=== PATIENT | male | born 2005 | race Caucasian/White ===

== ENCOUNTER 2024-12-13 12:55 | Emergency (ER) | payer BC, SELFPAY ==
--- OUTSIDE RECORDS SUMMARY | 2024-12-13 12:56 | XMS_ITS | Clinical Summary ---
Author Organization [facility] Address [address] [facility] [address], [place] [address] [place] [address] Care Team Providers Care Landman Name Role Phone Clay Agarwal MD Primary Care Provider Source Comments These records are disclosed for treatment purposes as permitted by state and federal privacy law. Any further disclosure may only be done as permitted by law or with the patient's written authorization.[facility] Allergies Active Allergy Reactions Criticality Noted Date Comments Cottonseed Oil Rash Low 10/06/2019 Itchy rash with testosterone cypionate (cottonseed oil). Medications testosterone enanthate (DELATESTRYL) 200 mg/mL injection 50 mg. 3 Active hydroquinone 6 % Emulsion Apply 1 Film topically 2 times a day. 30 g 5 3 Active Active Problems Problem Noted Date Diagnosed Date Gender dysphoria 11/16/2022 Keloid scar 11/16/2022 Social History Tobacco Use Types Packs/Day Years Used Date Smoking Tobacco: Never Assessed Comments Unknown Sex and Gender Information Value Date Recorded Sex Assigned at Not on file Legal Sex Female 3:37 AM PDT Gender Identity Not on file Sexual Orientation Not on file Plan of Treatment Health Maintenance Due Date Last Done Comments MMR vaccines (1 of 1 - Standard series) 2005 Well Visit 2007 DTaP / Tdap / Td vaccines (1 - Tdap) 2011 Varicella vaccines (1 of 2 - 13+ 2-dose series) 2017 HPV vaccines (1 - 3-dose series) 2019 Hepatitis B vaccines (1 of 3 - 19+ 3-dose series) 2023 COVID-19 Vaccine (3 - 2023-2 5 season) 2024 01/05/2021, 12/15/2020 Influenza Vaccine (#1) 2024 Hepatitis A vaccines Aged Out No long er eligible based on patient's age to complete this topic Hib vaccines Aged Out No longer eligi ble based on patient's age to complete this topic Meningococcal (ACYW) vaccine Aged Out No longer eligible based on patient's age to complete this topic Pneumococcal (PCV) vaccines Aged Out No longer eligible based on patient's age to complete this topic Polio (IPV/OPV) vaccines Aged Out No longer eligible based on patient's age to complete this topic RSV <20 Months Aged Out No longer celestino gible based on patient's age to complete this topic Rotavirus vaccines Aged Out No longer eligible based on patient's age to complete this topic Care Teams Landman Relationship Specialty Start Date End Date Clay Agarwal MD [facility] [address] [place] [address] PCP - General Unknown 10/31/22
--- OUTSIDE RECORDS SUMMARY | 2024-12-13 12:57 | XMS_ITS | Encounter Summary ---
Author Organization [facility], [facility], [facility], and Affiliates Address [address] [place] [address] Care Team Providers Care Bagger And Stock Handler Helper Name Role Phone Clay Agarwal MD Primary Care Provider Joan Kitchen NP Unavailable [phone] Francesca Nagel MD Unavailable [phone] Encounter Details Date Type Department Care Team (Late Contact Info) Description 03/23/2021 Telephone [facility] Pediatric Endocrine [address] [place] [address] [address] [place] [address] Gabriela Roberts RN Social History Tobacco Use Types Packs/Day Years Used Date Smoking Tobacco: Never Smokeless Tobacco: Never Comments Unknown Sex and Gender Information Value Date Recorded Sex Assigned at Female 04/25/2022 3:34 PM PDT Legal Sex Female 1:06 PM PDT Gender Identity Male 04/25/2022 3:34 PM PDT Sexual Orientation Bisexual 04/25/2022 3: 55 PM PDT documented as of this encounter Plan of Treatment Upcoming Encounters Date Type Department Care Team (Late Contact Info) Description 02/10/2025 3:00 PM PDT Office Visit [facility] Transgender Care Clinic [address] [place] [phone] Francesca Nagel MD [address] [place] [address] St, [address] [place] [address] documented as of this encounter Visit Diagnoses Not on filedocumented in this encounter Care Teams Bagger And Stock Handler Helper Relationship Specialty Start Date End Date Clay Agarwal MD [address] [place] [address] PCP - General Pediatrics 07/21/19 Joan Kitchen NP [address] [place] [address], 6th [place] [address] Nurse Practitioner Pediatric Endocrinology 04/25/22 Francesca Nagel MD [facility] [facility], [address] [place] [address] Family Medicine 01/21/23 documented as of this encounter
--- OUTSIDE RECORDS SUMMARY | 2024-12-13 12:57 | XMS_ITS | Patient Health Record ---
Author Organization [facility] Address [address] [place] [address] Care Team Providers Care Fixing Carpenter Name Role Phone Clay Agarwal MD Primary Care Provider Unavail able Allergies Allergen (clinical drug ingredient) Drug/Non Drug Allergy documented on EMR Reaction Allergy Type Onset Date Status Cottonseed Oil rash Drug Allergy Ac tive Reason For Referral No Information Medications Medication SIG (Take, Route, Frequency, Duration) Notes Start Date End Date Status Testosterone Active Social History Tobacco Use: Social History Observation Description Date Details (start date - stop date) Never Smoker NA - NA Tobacco Use/Smoking Question Answer Notes You are a nonsmoker Plan Of Treatment No Information Insurance Providers Payer Name Payer Address Payer Phone Subscriber Number Group Number Insured Name Patient Relationship to Insured Coverage Start Date Coverage End Date [employer] PPO or NAP [address] [place] [address] [id number] GENESIS KAROLYN Parent Medical (General) History Medical History History ICD Code Pfizer x3
--- OUTSIDE RECORDS SUMMARY | 2024-12-13 12:57 | XMS_ITS | Clinical Summary ---
Author Organization [facility], [facility], [facility], and Affiliates Address [address] [place] [address] Care Team Providers Care Molder Closed Molds Name Role Phone Clay Agarwal MD Primary Care Provider Joan Kitchen NP Unavailable [phone] Francesca Nagel MD Unavailable [phone] Allergies Active Allergy Reactions Criticality Noted Date Comments Cottonseed Oil Rash Low 10/06/2019 Itchy rash with testosterone cypionate (cottonseed oil). Medications * This document contains information received from the source organization and may not represent a complete record from that organization. empty container (SHARPS CONTAINER) MISCIndications :Gender dysphoria Dispense 1 sharps container prn 1 each 3 2 Active alcohol swabs (ALCOHOL PADS) PADSMEDIndicati ons:Gender dysphoria Use 1 pad daily to skin at injection site prior to injection 100 each 3 2 Active syringe with needle (BD TUBERCULIN SYRINGE) 1 mL 25 gauge x 5/8 syringeIndicati ons:Gender dysphoria 1 each by Misc.(Non-Drug; Combo Route) route every 7 (seven) days 12 each 1 3 Active testosterone enanthate (DELATESTRYL) 200 mg/mL injectionIndica tions:Gender dysphoria INJECT 0.25 MILLILITERS UNDER THE SKIN EVERY WEEK 5 mL 3 3 Active LORazepam (ATIVAN) 0.5 mg tabletIndicatio ns:Anxiety due to invasive procedure Take 1 tablet (0.5 mg total) by mouth every 30 (thirty) minutes as needed for Anxiety (prior to imaging study or procedure) for up to 2 doses 2 tablet 5 Active Active Problems Problem Noted Date Diagnosed Date 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 Ayaz started GAHT with testosterone 09/2019. 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 He is adherent to testosterone 50 mg/week without AE or s/sx hypogonadism. Labs 06/2022 resulted in a serum total testosterone within range for male and age and no evidence of erythrocytosis. Followed by Dr. Driver for dyslipidemia and will repeat fasting labs next month for her. I recommend that Ayaz continue the current dose of testosterone, transition to adult Gender Health, and there are no contraindications for hysterectomy. Discharged from [facility]. Assessment & Plan (04/25/2022 4:01 PM PDT): Ayaz Armenta is a male designated female, he/him, who was first evaluated at [facility] for gender dysphoria 07/21/2019. Ayaz started GAHT with testosterone 09/2019. 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 He is adherent to testosterone 50 mg/week without AE or s/sx hypogonadism. Labs 05/2021 resulted in normal serum total T for age and no evidence of erythrocytosis. I recommend repeat labs as ordered now to evaluate the dose and screen for AE and recommend that patient continue the current dose pending lab results. RTC q 4 months by video. Assessment & Plan (08/16/2021 10:33 AM PST): Affirmed on T therapy. Labs in 05/2021 demonstrated appropriate T level drawn 4 days post-injection and normal hematocrit level. Noted to have persistent dyslipidemia with onset following initiation of T therapy despite increase in physical activity and healthy diet. - Continue SQ T 50 mg/wk - No indication for repeat labs at this time Assessment & Plan (05/23/2021 6:53 PM PDT): Affirmed on T therapy. Recent labs demonstrate appropriate T level drawn 4 days post-injection. Persistent dyslipidemia with onset following initiation of T therapy despite increase in physical activity and healthy diet. Recent hematocrit within normal limits. - Continue SQ T 50 mg/wk - Refer to [facility] for further evaluation of dyslipidemia - Follow-up in 3-4 months Resolved Problems Problem Noted Date Diagnosed Date Resolved Date Counseling for transition fr pediatric to adult care provider 08/14/2021 03/06/2023 Overview (09/04/2022): [facility] ([facility]) Health Care Transition Readiness 1. [x] Have you shared the HCT policy (.CAGCHCTPolicy) with the patient? 2. [x] Is the patient on a stable hormone regimen? 3. [] Has patient signed their [facility] consent forms (if >=18 years)? 4. [] Patient is not planning on other gender-affirming treatments in the next year. 5. [x] Has patient identified an adult provider to whom they would like to transfer their care? 6. [x] Have you provided patient with a transfer summary? Assessment & Plan (09/04/2022 1:30 PM PST): Patient states understanding of the health care transition policy. Gender-affirming healthcare activities were discussed, and patient demonstrates competency in: scheduling appointments, filling prescriptions, completing lab work, utilizing insurance, communicating gender history and communicating future medical/surgical gender-affirming goals. Patient is ready for transition to adult gender care services: Yes. [facility] Gender Health. Eosinophilia 05/23/2021 09/04/2022 Assessment & Plan (05/23/2021 6:58 PM PDT): Incidental finding on CBC w/ differential obtained for T monitoring. Possibly due to recent allergic reaction of the patient's eye. Will defer to PCP for further evaluation and follow-up. Dyslipidemia 05/23/2021 03/06/2023 Assessment & Plan (08/16/2021 10:34 AM PST): Fasting labs 05/2021 revealed elevated triglycerides and low HDL with normal LDL. Dyslipidemia onset occurred after initiation of testosterone therapy and has occurred despite increase in physical activity, healthy diet, and no significant weight change with a healthy BMI. Thre is a strong family history of dyslipidemia and heart disease with a myocardial infarction at a young age (age 35 years) in the patient's grandfather. - continue healthy diet and exercise - previously referred to [facility] for further evaluation; scheduled to be seen in 09/2021 Assessment & Plan (05/23/2021 6:57 PM PDT): Fasting labs revealed elevated triglycerides and low HDL with normal LDL. Dyslipidemia onset occurred after initiation of testosterone therapy and has occurred despite recent increase in physical activity, healthy diet, and no significant weight change with a healthy BMI. Thre is a strong family history of dyslipidemia and heart disease with a myocardial infarction at a young age (age 35 years) in the patient's grandfather. - continue healthy diet and exercise - refer to [facility] Clinic for further evaluation Endocrine disorder 12/08/2019 2 Encounters Date Type Department Care Team Description 11/18/2024 1:15 PM PDT Office Visit [facility] Transgender Care Clinic [address] [place] [phone] Francesca Nagel MD Gender dysphoria (Primary Dx) 10/08/2024 Telephone [facility] Trans[facility] Care Clinic [address] [place] [phone] Francesca Nagel MD Medication Prior Authorization (Testopel 75 mg) from Last 3 Months Immunizations Name Administration Dates Next Due DTaP 10/05/2008, 6,2004,10/05,2004 Gamma Globulin 11/22/2015 HPV 9 GARDASIL 05/23/2016,01/23/2016,11/22/2015 Hepatitis A 05/29/2006,11/29/2005 Hepatitis B, Ped/Adol 2004,2004,3 Hib, Unspecified 06/08/2005,2004, 4 Hpv, Unspecified 01/23/2016,11/22/2015 IPV 10/05/2008, 5,2004,07/31 Influenza 06/02/2024,07/20/2022,06/16/2019 Influenza Nasal 06/24/2014, 3,07/21/2012,06/18,06/26/2011 Influenza Quad MDCK, Pfree 07/28/2021,06/10/2020 ,07/17/2017 Influenza, Split Tri PF 07/02/2015 MMR 10/05/2008,06/08/2005 Meningococcal (Mcv4), Unspecified 02/22/2021, Meningococcal Group B (Bexsero) 04/30/2022,03/01 PPD Test 11/22/2015,03/14/2010 Pfizer Sars-Cov-2 Vaccine (Purple Top) ,01/05/2021,12/15/2020 Pneumococcal Conjugate (Prevnar 7) 06/08,2004,2004,07/31 Tdap 11/22/2015 Varicella 10/05/2008,06/08/2005 Family History Medical History Relation Name Comments Depression Brother High cholesterol Maternal Grandmother High blood pressure Mother Heart disease Paternal Grandfather heart attack at age 35 years High cholesterol Paternal Grandfather High cholesterol Paternal Grandmother Malig hypertherm Neg Hx Relation Name Status Comments Brother Alive Father Alive Maternal Grandmother Mother Alive Paternal Grandfather Paternal Grandmother Social History Tobacco Use Types Packs/Day Years Used Date Smoking Tobacco: Never Smokeless Tobacco: Never Tobacco Cessation:Counseling Given: Not Answered Alcohol Use Standard Drinks/Week Comments Yes 0 (1 standard drink = 0.6 oz pur e alcohol) Comments Unknown Sex and Gender Information Value Date Recorded Sex Assigned at Female 04/25/2022 3:34 PM PDT Legal Sex Female 1:06 PM PDT Gender Identity Male 04/25/2022 3:34 PM PDT Sexual Orientation Bisexual 04/25/2022 3: 55 PM PDT Last Filed Vital Signs Vital Sign Reading Time Taken Comments Blood Pressure 135/75 11/18/2024 1:17 PM PDT Pulse 69 11/18/2024 1:17 PM PDT Temperature 36.3 C (97.4 F) 11/18/2024 1:17 PM PDT Respiratory Rate 18 11/21/2022 1:30 PM PDT Oxygen Saturation 98% 11/18/2024 1:17 PM PDT Inhaled Oxygen Concentration - - Weight 61.2 kg (135 lb) 07/29/2024 2:51 PM PST Height 162.6 cm (5' 4) 07/29/2024 2:51 PM PST Body Mass Index 23.17 07/29/2024 2:51 PM PST Plan of Treatment Upcoming Encounters Date Type Department Care Team ([facility] st Contact Info) Description 02/10/2025 3:00 PM PDT Office Visit [facility] Transgender Care Clinic [address] [facility] [address] [place] [address] Francesca Nagel MD [address] [facility], [address] [place] [address] Health Maintenance Due Date Last Done Comments Hepatitis B Routine Screening 2004 Chlamydia and Gonorrhea Screening 2020 HIV Routine Screening 2022 Hepatitis C Routine Screening 2022 Covid-19 Vaccine ( season) 2024 07/20/2022, 08/24/2021, 01/05/2021, Additional history exists Tobacco Screening 11/18/2025 11/18/2024 Td Immunization 11/21/2025 11/22/2015 Zoster Vaccines (1 of 2) 2054 Hepatitis B Vaccines Completed 2004, 2004, 2004 Pneumococcal Vaccine (0-49 years) Aged Out 06/08/2005, 2004, 2004, Additional history exists No longer eligible based on patient's age to complete this topic Tdap Immunization Completed 11/22/2015 HPV Vaccines Completed 05/23/2016, 01/01, 01/23/2016, Additional history exists Meningitis B Vaccines Completed 04/30/2022, 022 Influenza Vaccines Completed 06/02/2024, 1 09/19/2021, 07/28/2021, Additional history exists Insurance [employer] Care Teams Molder Closed Molds Relationship Specialty Start Date End Date Clay Agarwal MD [address] [place] [address] [address] [place] [address] PCP - General Pediatrics 07/21/19 Joan Kitchen NP [address] [place] [address], 6th [place] [phone] Nurse Practitioner Pediatric Endocrinology 04/25/22 Francesca Nagel MD [address] [place] [address], [address] [place] [address] Family Medicine 01/21/23
--- OUTSIDE RECORDS SUMMARY | 2024-12-13 12:57 | XMS_ITS | Encounter Summary ---
Author Organization [facility], [facility], [facility], and Affiliates Address [address] [place] [address] Care Team Providers Care Coil Winder Hand Name Role Phone Clay Agarwal MD Primary Care Provider Joan Kitchen NP Unavailable [phone] Francesca Naegl MD Unavailable [phone] Reason for Visit * Reason Onset Date Comments Medication Prior Authorization 11/09/2021 t estosterone enanthate Encounter Details Date Type Department Care Team (Late Contact Info) Description 11/09/2021 Telephone [facility] Pediatric Endocrine [facility] [place] [phone] Radha Miller Medication Prior Authorization (testosterone enanthate) Social History Tobacco Use Types Packs/Day Years [...] Upcoming Encounters Date Type Department Care Team ([facility] Contact Info) Description 02/10/2025 3:00 PM PDT Office Visit [facility] Transgender Care Clinic [address] [place] [phone] Francesca Nagel MD [address] [place] [phone] documented as of this encounter Visit Diagnoses Not on filedocumented in this encounter Care Teams Coil Winder Hand Relationship Specialty Start Date End Date Clay Agarwal MD [address] [place] [address] [address] [place] [address] PCP - General Pediatrics 07/21/19 Joan Kitchen NP [address] [place] [address], [address]th [place] [phone] Nurse Practitioner Pediatric Endocrinology 04/25/22 Francesca Nagel MD [address] [place] [phone] Family Medicine 01/21/23 documented as of this encounter
--- OUTSIDE RECORDS SUMMARY | 2024-12-13 12:57 | XMS_ITS | Encounter Summary ---
Author Organization [facility], [facility], [facility], and Affiliates Address [address] [place] [address] Care Team Providers Care Photoengraving Retoucher Name Role Phone Clay Agarwal MD Primary Care Provider Joan Kitchen NP Unavailable [phone] Francesca Nagel MD Unavailable [phone] Reason for Visit * Reason Comments Procedure Testopel Encounter Details Date Type Department Care Team ([facility] Contact Info) Description 11/18/2024 1:15 PM PDT Office Visit [facility] [address] [place] [phone] Francesca Nagel MD [address] [place] [address], [address] [place] [address] Gender dysphoria (Primary Dx) Social History Tobacco Use Types Packs/Day Years Used Date Smoking Tobacco: Never Smokeless Tobacco: Never Alcohol Use Standard Drinks/Week Comments Yes 0 (1 standard drink = 0.6 oz pur e alcohol) Comments Unknown Sex and Gender Information Value Date Recorded Sex Assigned at Female 04/25/2022 3:34 PM PDT Legal Sex Female 1:06 PM PDT Gender Identity Male 04/25/2022 3:34 PM PDT Sexual Orientation Bisexual 04/25/2022 3: 55 PM PDT documented as of this encounter Last Filed Vital Signs Vital Sign Reading Time Taken Comments Blood Pressure 135/75 11/18/2024 1:17 PM PDT Pulse 69 11/18/2024 1:17 PM PDT Temperature 36.3 C (97.4 F) 11/18/2024 1:17 PM PDT Respiratory Rate - - Oxygen Saturation 98% 11/18/2024 1:17 PM PDT Inhaled Oxygen Concentration - - Weight - - Height - - Body Mass Index - - documented in this encounter Patient Instructions * Patient Instructions* Francesca Nagel MD - 11/18/2024 1:15 PM PDT Have your labs done at any [facility] lab location in 2 weeks. You can find a [facility] lab location and schedule your lab test appointment at this website: [email or web address] Tests can be done by appointment or as a walk-in If you are not having your blood test performed in the [facility], It is advised that you bring a paper or electronic copy of the lab order slips with you to your lab appointment in the event there is confusion at the lab. See me in 3 months. You must schedule the appointment today as things fill quickly and there can vaibhav several month wait for an appointment. If you do not schedule your visit in advance and then as aresult are unable to see me when due, I may not be able to refill your medication for you. Scheduling is now done through the [employer] portal. You may also call [phone] however please note that requests for scheduling via phone may experience significant delays. PATIENT POLICIES AND EXPECTATIONS [facility] GENDER AFFIRMING HEALTH PROGRAM Reading and understanding these policies and expectations are a requirement for treatment in this clinic. More information about our program is available at [email or web address] TIMING OF LABS AND VISITS In order to properly monitor your health and treatment, your provider will periodically order lab tests to be done, and request follow up visits. The timing and details for these lab tests and visitswill be listed in your after visit summary, available in [employer], or printed for you on paper at your request. You should review all of these materials after each visit to be sure you are clear on next steps, and when labs, visits, or other requirements are due. LAB TESTS Lab tests must be done while taking the full, prescribed dose, so that your provider can see how your body is reacting to the medication. You should be on the full dose for 6 weeks before your lab tests are done. NOTE: In general hormone lab tests require up to 2 weeks for results to be available. All hormone testing must be completed a minimum of 2 weeks before your visit to insure that your results will be available. Our office will send you a reminder message by [employer] (or by phone, if you are not signed up for [employer]) when lab tests are due. If labs are not done on time and following instructions given to you by your provider, your appointment will be rescheduled by our staff and you will receive a written notice of late labs. OFFICE VISITS AND REFILL REQUIREMENTS Office visits (in-person or telemedicine) are needed at the required intervals in order to properlyand safely monitor your care. Please note that the schedule often fills well in advance, so you should contact our office or self-schedule via [employer] at least 3 months in advance to schedule follow up visits, or your visit may not be able to occur on time. If you do not have follow up visits done on time, or do not take other required steps as listed in your after visit summary, you will receivea written notice. After a second written notice, you will no longer be able to receive hormone prescriptions from this practice. If you request a refill but are overdue for labs, or if you are due for an upcoming visit that is not scheduled, your refill will not be approved until your labs are completed on the full, prescribeddose and you have an appointment scheduled. If the delay in scheduling results in your appointment being scheduled past the due date, your provider may deny your refill. IN PERSON VS TELEMEDICINE VISITS Telemedicine is a convenience we offer for some patients under some circumstances. In some cases anin-person visit will be required. If you decline an in-person visit when one is required, then yourprovider will be unable to diagnose or treat your condition, make specialty referrals, or provide other relevant care. Scheduling telemedicine visits requires that you have an active [facility] [employer] account, that you regularly check for messages and notices, and that you have set up [employer] to send you notifications viae-mail or on your device when messages and notices received. If you do not have an active [employer] account, or if you are sent messages via [employer] that go unread, you will no longer be able to schedule telemedicine visits, and will be required to schedule only in-person visits. Telemedicine visits have specific requirements provided below. If you are unable to meet these requirements, you will asked to schedule only in-person visits. 1) You must be a permanent resident of, or located in, the [facility] [place] (or other states where your provider might hold a license) at the time of the visit. 2) Your audio and video must have a good, stable connection. If your connection fails or becomes unstable, the visit will need to be rescheduled. 3) You should be seated and remain in one location during the visit. Once logged in, device should not be moved from its location, to avoid causing problems with the connection. 4) If in a vehicle, the car must be stopped for the entire visit, and the policies in (3) above apply. TAKING PRESCRIBED DOSE You should not make any changes to the dose, frequency, or the way that you take the medications, unless you first discuss with your provider and agree on a change. Making changes to your dosing, frequency, or the way in which you take the medication can cause harm and makes it difficult for your provider to monitor your health. To avoid confusion and possible errors in your dosing or overdosing,only one prescriber should be managing your hormones at a time. If you make changes to your dose, frequency, or the way you take your medication, or if you see another provider who prescribes, refills, or adjusts your hormone doses for you, you will receive a written notice. After a second written notice, you will no longer be able to receive hormone prescriptions from this practice. TREATMENT DECISIONS ARE MADE BY THE PROVIDER Providers work to listen to patients??? needs, goals, and concerns, and develop an individual treatment plan that includes medications, doses, frequency, as well as lab test and follow-up visit timing. Ultimately, the prescribing provider will make the final decision regarding these aspects of careand prescribing. Providers follow evidence-based guidelines and established best practices, and also their own clinical judgment to develop your treatment plan. Treatment may differ from patient to patient based on a number of clinical factors. MAKING ALTERNATIVE ARRANGEMENTS If something comes up that will prevent you from being able to have labs or visits on time, taking your medication as prescribed, or following any other instructions given to you by your provider or our staff, you must contact your provider immediately to discuss alternative arrangements. Regardless of the circumstances, if you provider feels they are unable to safely monitor your treatment due to missed labs or visits, or other factors, then you will no longer be able to receive hormone prescriptions from this clinic. AFTER-VISIT SUMMARY HAS IMPORTANT INFORMATION AND INSTRUCTIONS Be sure to review the After Visit Summary (AVS) for your recent visit. This can be done by reviewing the printed paperwork given to you at the end of the visit, or through the [employer] portal. The AVSwill contain all of your instructions for the timing of your next lab, visit, medication doses or changes, and other important information and instructions. You are responsible for following all instructions in the AVS, as a condition for continued treatment. If you wish to have a printed copy of your AVS mailed to you after a telemedicine visit, notify your provider or the staff. To view your After-Visit Summary in [employer]: 1) Log in to [employer] 2) Go to the Visits tab 3) Under the Visits tab, choose Appointments and Past Visits Select the After Visit Summary under the specific visit CLARIFICATIONS AND TREATMENTS WE DO NOT OFFER AT THIS CLINIC The below treatments and methods are not evidence based nor aligned with guidelines, and not offered at the [facility] Gender Affirming Health Program 1) Dosing of hormones/blood hormone levels higher than described in, or not aligned with appropriate published guidelines, including WPATH SOC8 and Endocrine Society Guidelines 2) Rectally administered hormones 3) Cycled dose hormones or intermittent dosing 4) Bicalutamide 5) Conjugated equine estrogens (???Premarin?? ) 6) Use of serum estrone or estriol levels to guide therapy 7) DHT/dihydrotestosterone 8) Cyproterone 9) Prescribe the same hormone simultaneously by more than one route There is no evidence to support the application of hormones directly to the genitals. Patients seeking to apply topical hormone preparations to genital area will have this dose included in overall dose, and taken into consideration when interpreting hormone levels and adjusting dose We do not use the term ???microdosing?? . Instead, we use a patient-goal driven approach to dosing that is guided by hormone levels and response to treatment on an individual basis. A ???low dose?? for one patient may be a ???high dose?? for another patient. documented in this encounter Progress Notes * Francesca Nagel MD - 11/18/2024 1:15 PM PDT Ayaz Armenat is an 19 y.o. person here for: Testopel QUEST Subjective Transgender man here for next testopel insertion. 4 months past since last insertion. In last 1-2 weeks has had some low energy and irritability. O/w no side effects and felt good with last cycle, which was first. Goal is to continue as present, male range T. Assessment and Plan ) Transgender man now for 2nd testopel. T level 912 peak and 412 trough. We will repeat 7 pellets today with plan for 3 month follow up. Check peak. I have diagnosed this patient with Gender Dysphoria (F64.0). Untreated gender dysphoria is associated with significant mental health impacts including high rates of suicidality. Gender affirming hormone therapy has been identified in the [employer] for Transgender Health Standards of Care as medically necessary in the treatment of Gender Dysphoria, F64.0. Gender affirming hormone therapy has been found in numerous studies to reduce measures of anxiety and depression and improve quality of life. Pt already on HRT, discussed regional intermodal truck driver considerations, risks, alternatives, and unknowns. Pt has appropriate capacity and insight to provide informed consent. Appropriate to continue HRT. Procedure Testopel insertion. After discussion of the risks, benefits, alternatives, and procedure specifics, as well as specificrisks of infection, bleeding, pain at site, as well as unpredictable T levels as we spend possibly several months finding the right dose for the patient, the patient signed the consent form. We then had a time out to confirm patient and location. L gluteal area prepped and draped in usual sterile fashion. The skin was marked in the upper outer quadrant of the L gluteal area, followed by prep and drape in usual sterile fashion. I then aanesth the skin and subcutaneous areas with lidocaine plain 1%, tracking through the tissues and then leaving a wheal. After a joanna on the skin with an 11 blade, the Testopel catheter was inserted, the innerneedle was removed and the trocar was placed, while 7 testopel pellets were placed using the fan technique. The trocar was removed, the area closed with steri-strips and an occlusive dressing. Procedure well tolerated without complications, EBL <1 cc. documented in this encounter Plan of Treatment Upcoming Encounters Date Type Department Care Team (Late st Contact Info) Description 02/10/2025 3:00 PM PDT Office Visit [facility] [address] [place] [phone] Francesca Nagel MD [address] [place] [address] [address] [place], [place] [phone] Scheduled Orders Name Type Priority Associated Diagnoses Orde r Schedule Testosterone, Free & Total, and SHBG Lab Routine Gender dysphoria 1 Occurrences starting 11/18/2024 until 11/18/2025 Hematocrit Lab Routine Gender dysphoria 1 Occurrences starting 11/18/2024 until 11/18/2025 Hemoglobin Lab Routine Gender dysphoria 1 Occurrences starting 11/18/2024 until 11/18/2025 documented as of this encounter Visit Diagnoses Diagnosis Gender dysphoria- Primary Gender identity disorder in children documented in this encounter Care Teams Photoengraving Retoucher Relationship Specialty Start Date End Date Clay Agarwal MD [facility] [address] [place] [address] PCP - General Pediatrics 07/21/19 Joan Kitchen NP [facility] [facility] [address], [address] [place] [phone] Nurse Practitioner Pediatric Endocrinology 04/25/22 Francesca Nagel MD [address] [place] [address], [address] [place], [place] [phone] Family Medicine 01/21/23 documented as of this encounter
--- OUTSIDE RECORDS SUMMARY | 2024-12-13 12:57 | XMS_ITS | Encounter Summary ---
Author Organization [facility], [facility], [facility], and Affiliates Address [address] [facility] [place] [address] Care Team Providers Care Pulmonology Technician Name Role Phone Provider, Not Confirmed Primary Care Provider Un available Clay Agarwal MD Primary Care Provider Joan Kitchen NP Unavailable [phone] Francesca Nagel MD Unavailable [phone] Encounter Details Date Type Department Care Team (Late st Contact Info) Description 02/19/2019 Care Coordination [facility] [address] [place] [phone] Provider, Not Confirmed Social History Tobacco Use Types Packs/Day Years [...] Description 02/10/2025 3:00 PM PDT Office Visit [facility] Clinic [address] [place] [phone] Francesca Nagel MD [address] [place] [address] St, [address] [place] [address] documented as of this encounter Visit Diagnoses Not on filedocumented in this encounter Care Teams Pulmonology Technician Relationship Specialty Start Date End Date Provider, Not Confirmed PCP - General 02/19/19 07/20/19 Clay Agarwal MD [address] [place] [address] PCP - General Pediatrics 07/21/19 Joan Kitchen NP [address] [place] [address], [address] [place] [address] Nurse Practitioner Pediatric Endocrinology 04/25/22 Francesca Nagel MD [address] [facility], [address] [place] [address] Family Medicine 01/21/23 documented as of this encounter
--- OUTSIDE RECORDS SUMMARY | 2024-12-13 12:57 | XMS_ITS | Encounter Summary ---
Author Organization [facility], [facility], [facility], and Affiliates Address [address] [place] [address] Care Team Providers Care Account Support Analyst Name Role Phone Clay Agarwal MD Primary Care Provider Jaon Kitchen NP Unavailable [phone] Francesca Nagel MD Unavailable [phone] Reason for Visit * Reason Onset Date Comments Medication Prior Authorization 04/05/2020 t estosterone enanthate Encounter Details Date Type Department Care Team (Late Contact Info) Description 04/05/2020 Telephone [facility] Pediatric Endocrine [address] [place] [address] 4 [place] [address] Radha Miller Medication Prior Authorization (testosterone enanthate ) Social History Tobacco Use Types Packs/Day Years [...] Description 02/10/2025 3:00 PM PDT Office Visit [facility] Trans[facility] Clinic [address] [place] [phone] Francesca Nagel MD [facility] [phone] documented as of this encounter Visit Diagnoses Not on filedocumented in this encounter Care Teams Account Support Analyst Relationship Specialty Start Date End Date Clay Agarwal MD [address] [place] [address] Rd [address] [place] [address] PCP - General Pediatrics 07/21/19 Joan Kitchen NP [address] [place] [address], 6th [place] [phone] Nurse Practitioner Pediatric Endocrinology 04/25/22 Francesca Nagel MD [address] [place] [address], [address] [place] [address] Family Medicine 01/21/23 documented as of this encounter
--- OUTSIDE RECORDS SUMMARY | 2024-12-13 12:58 | XMS_ITS | Referral Summary ---
Author Organization [facility], [facility], [facility], and Affiliates Address [address] [place] [address] Care Team Providers Care General Superintendent Name Role Phone Clay Agarwal MD Primary Care Provider Joan Kitchen NP Unavailable [phone] Francesca Nagel MD Unavailable [phone] Encounters Date Type Department Care Team Description 11/18/2024 1:15 PM PDT Office Visit [facility] Transgender [facility] Clinic [address] [place] [phone] Francesca Nagel MD Gender dysphoria (Primary Dx) 10/08/2024 Telephone [facility] [address] [place] [phone] Francesca Nagel MD Medication Prior Authorization (Testopel 75 mg) from Last 3 Months Allergies Active Allergy Reactions Criticality Noted Date Comments Cottonseed Oil Rash Low 10/06/2019 Itchy rash with testosterone cypionate (cottonseed oil). Medications * This document contains information received from the source organization and may not represent a complete record from that organization. empty container (SHARPS CONTAINER) MISCIndications :Gender dysphoria Dispense 1 sharps container prn 1 each 3 08/24/202 2 Active alcohol swabs (ALCOHOL PADS) PADSMEDIndicati ons:Gender dysphoria Use 1 pad daily to skin at injection site prior to injection 100 each 3 2 Active syringe with needle (BD TUBERCULIN SYRINGE) 1 mL 25 gauge x 5/8 syringeIndicati ons:Gender dysphoria 1 each by [facility].(Non-Drug; Combo Route) route every 7 (seven) days [...] female, he/him, who was first evaluated at [facility] for gender dysphoria 07/21/2019. Ayaz started GAHT [...] are no contraindications for hysterectomy. Discharged from [facility]. Assessment & Plan (04/25/2022 4:01 PM PDT): Ayaz Armenta is a male designated female, he/him, who was first evaluated at [facility] for gender dysphoria 07/21/2019. Ayaz started GAHT [...] adult care provider 08/14/2021 03/06/2023 Overview (09/04/2022): [facility]oles[facility] ([facility]) Health Care Transition Readiness 1. [x] Have you shared the HCT policy (.CAGCHCTPolicy) with the patient? 2. [x] Is the patient on a stable hormone regimen? 3. [] Has patient signed their [facility] consent forms (if >=18 years)? 4. [...] transition to adult gender care services: Yes. [facility] Gender Health. Eosinophilia 05/23/2021 09/04/2022 [...] for further evaluation Endocrine disorder 12/08/2019 2 Immunizations Name Administration Dates Next Due DTaP 10/05/2008, 6,2004,10/05,2004 Gamma Globulin 11/22/2015 HPV 9 GARDASIL 05/23/2016,01/23/2016,11/22/2015 Hepatitis A 05/29/2006,11/29/2005 Hepatitis B, Ped/Adol 2004,2004,05/05 Hib, Unspecified 06/08/2005,2004, 4 Hpv, Unspecified 01/23/2016,11/22/2015 IPV 10/05/2008, 5,2004,07/31 Influenza 06/02/2024,07/20/2022,06/16/2019 Influenza Nasal 06/24/2014, 3,07/21/2012,06/18,06/26/2011 Influenza Quad MDCK, Pfree 07/28/2021,06/10/2020 ,07/17/2017 Influenza, Split Tri PF 07/02/2015 MMR 10/05/2008,06/08/2005 Meningococcal (Mcv4), Unspecified 02/22/2021, Meningococcal Group B (Bexsero) 04/30/2022,03/01 PPD Test 11/22/2015,03/14/2010 Pfizer Sars-Cov-2 Vaccine (Purple Top) ,01/05/2021,12/15/2020 Pneumococcal Conjugate (Prevnar 7) 06/08,2004,2004,07/31 Tdap 11/22/2015 Varicella 10/05/2008,06/08/2005 Social History Tobacco Use Types Packs/Day Years [...] Upcoming Encounters Date Type Department Care Team ([facility] st Contact Info) Description 02/10/2025 3:00 PM PDT Office Visit [facility] Transgender Care Clinic [address] [facility] 2 [place] [phone] Francesca Nagel MD [address] [facility], [address] [place] [address] Insurance AN[employer]M Care Teams General Superintendent Relationship Specialty Start Date End Date Clay Agarwal MD [facility] [address] [place] [address] PCP - General Pediatrics 07/21/19 Joan Kitchen NP [facility] [facility] [address], 6th [place] [address] Nurse Practitioner Pediatric Endocrinology 04/25/22 Francesca Nagel MD [facility] [facility], [place] [phone] Family Medicine 01/21/23
--- OUTSIDE RECORDS SUMMARY | 2024-12-13 12:58 | XMS_ITS | Encounter Summary ---
Author Organization [facility] Health, [facility], [facility] [place], and Affiliates Address [address] [place] [address] Care Team Providers Care Chief Environmental Commitment Officer Name Role Phone Clay Agarwal MD Primary Care Provider Joan Kitchen NP Unavailable [phone] Francesca Nagel MD Unavailable [phone] Reason for Visit * Reason Onset Date Comments Gender Checklist 09/07/2019 Encounter Details Date Type Department Care Team (Late st Contact Info) Description 09/07/2019 Telephone [facility] Pediatric Endocrine [address] [place] [phone] Berta Arroyo, DULCE Gender Checklist Social History Tobacco Use Types Packs/Day Years Used Date Smoking Tobacco: Never Assessed Comments Unknown Sex and Gender Information Value Date Recorded Sex Assigned at Female 04/25/2022 3:34 PM PDT Legal Sex Female 1:06 PM PDT Gender Identity Male 04/25/2022 3:34 PM PDT Sexual Orientation Bisexual 04/25/2022 3: 55 PM PDT documented as of this encounter Miscellaneous Notes * Telephone Encounter - Berta Arroyo RN - 09/07/2019 1:23 PM PST Copied from [facility] #[id number]. Topic: PEDS - Provider Only >> Sep 07, 2019 8:49 AM Arnulfo Paul wrote: APPOINTMENT TEMPLATE PATIENT NAME: Elizabeth Armenta DATE OF : 2005 MOM's Cell PHONE NUMBER:[phone] LEAVING A MESSAGE OK?: No REASON FOR APPOINTMENT: Start Testosterone INSURANCE INFORMATION: PAYOR: [employer] PLAN: Us/managed Choice [employer] MESSAGE / PROBLEM: Madhuri Armenta (Mother) would like to schedule above- please assist. MESSAGE GENERATED BY [facility] CRM NUMBER [id number] CREATED BY: ARNULFO PAUL, 09/07/2019, 8:49 AM documented in this encounter Plan of Treatment Upcoming Encounters Date Type Department Care Team (Late st Contact Info) Description 02/10/2025 3:00 PM PDT Office Visit [facility] Trans[facility] Care Clinic [address] [place] [phone] Francesca Nagel MD [address] [place] [address] documented as of this encounter Visit Diagnoses Not on filedocumented in this encounter Care Teams Chief Environmental Commitment Officer Relationship Specialty Start Date End Date Clay Agarwal MD [address] [place] [address] PCP - General Pediatrics 07/21/19 Joan Kitchen NP [address] [place] [address], 6th [place] [phone] Nurse Practitioner Pediatric Endocrinology 04/25/22 Francesca Nagel MD [address] [place] [address] [address] [place] [address] Family Medicine 01/21/23 documented as of this encounter
--- OUTSIDE RECORDS SUMMARY | 2024-12-13 12:58 | XMS_ITS | Encounter Summary ---
Author Organization [facility], [facility], [facility], and Affiliates Address [address] [place] [address] Care Team Providers Care Dust Mill Operator Name Role Phone Clay Agarwal MD Primary Care Provider Joan Kitchen FOOD SAFETY COORDINATOR Unavailable [phone] Francesca Nagel MD Unavailable [phone] Encounter Details Date Type Department Care Team (Late st Contact Info) Description 08/13/2022 Telephone [facility] [address] [place] [address] Joan Kitchen, FOOD SAFETY COORDINATOR [address], 6th [place] [address] Social History Tobacco Use Types Packs/Day Years Used Date Smoking Tobacco: Never Smokeless Tobacco: Never Alcohol Use Standard Drinks/Week Comments Never 0 (1 standard drink = 0.6 oz pur e alcohol) Comments Unknown Sex and Gender Information Value Date Recorded Sex Assigned at Female 04/25/2022 3:34 PM PDT Legal Sex Female 1:06 PM PDT Gender Identity Male 04/25/2022 3:34 PM PDT Sexual Orientation Bisexual 04/25/2022 3: 55 PM PDT documented as of this encounter Miscellaneous Notes * Telephone Encounter - Reena Lopez - 08/13/2022 12:20 PM PST Left a v/m for pt to call back re: appt in September. Pt was seen in Jul with [facility] Transgender clinic. documented in this encounter Plan of Treatment Upcoming Encounters Date Type Department Care Team (Late st Contact Info) Description 02/10/2025 3:00 PM PDT Office Visit [facility] Trans[facility] Care Clinic [address] [place] [phone] Francesca Nagel MD [address] [place] [address] [address] [place], [place] [phone] documented as of this encounter Visit Diagnoses Not on filedocumented in this encounter Care Teams Dust Mill Operator Relationship Specialty Start Date End Date Clay Agarwal MD [facility] [address] [place] [address] PCP - General Pediatrics 07/21/19 Joan Kitchen NP [address] [place] [address], 6th [place] [address] Nurse Practitioner Pediatric Endocrinology 04/25/22 Francesca Nagel MD [address] [place] [address], [facility] [address] [place], [place] [phone] Family Medicine 01/21/23 documented as of this encounter
--- OUTSIDE RECORDS SUMMARY | 2024-12-13 12:58 | XMS_ITS | Encounter Summary ---
Author Organization [facility] Health, [facility], [facility], and Affiliates Address [address] [place] [address] Care Team Providers Care Gauge Inspector Name Role Phone Clay Agarwal MD Primary Care Provider Joan Kitchen NP Unavailable Francesca Nagel MD Unavailable [phone] Reason for Visit * Reason Onset Date Comments Name Change 11/30/2019 Encounter Details Date Type Department Care Team (Late st Contact Info) Description 11/30/2019 Telephone [facility] Pediatric Endocrine [address] [place] [phone] Berta Arroyo, DULCE Name Change Social History Tobacco Use Types Packs/Day Years [...] Telephone Encounter - Berta Arroyo RN - 11/30/2019 12:17 PM PDT Copied from [facility] #[id number]. Topic: PEDS - Test Results >> Nov 30, 2019 8:53 AM Danyell Rivera wrote: TEST TEMPLATE PATIENT NAME: Ayaz Armenta DATE OF : 2005 HOME PHONE NUMBER: NONE ALTERNATE PHONE NUMBER: [phone] LEAVING A MESSAGE OK?: YES TYPE OF TEST: new lab order (TESTOSTERONE)with the correct name Ayaz SEND TEST ORDER TO: [facility] [id number], fax# [phone] INSURANCE INFORMATION: PAYOR: [employer] PLAN: Us/managed Choice [employer] MESSAGE / PROBLEM: Madhuri Armenta (Mother)called and requested above, the name legally has been changed with insurance and mom wants test to be paid for, please assist. MESSAGE GENERATED BY [facility] CRM NUMBER [id number] CREATED BY: DANYELL RIVERA, 11/30/2019, 8:53 AM documented in this encounter Plan of Treatment Upcoming Encounters Date Type Department Care Team (Late st Contact Info) Description 02/10/2025 3:00 PM PDT Office Visit [facility] Transgender Care Clinic [address] [place] [phone] Francesca Nagel MD [address] [place] [address], [address] [place] [address] documented as of this encounter Visit Diagnoses Not on filedocumented in this encounter Care Teams Gauge Inspector Relationship Specialty Start Date End Date Clay Agarwal MD [address] [place] [address] PCP - General Pediatrics 07/21/19 Joan Kitchen NP [address] [place] [address], 6th [place] [phone] Nurse Practitioner Pediatric Endocrinology 04/25/22 Francesca Nagel MD [address] [facility], [address] [place] [address] Family Medicine 01/21/23 documented as of this encounter
[2024-12-13 13:02] VITALS: BP 131/85; PULSE 95; RESP 16; TEMP 36.3; O2SAT 97; BMI 23.2
--- NOTE | 2024-12-13 14:10 | ED.LOWEXIN ---
HPI - Extremity Injury (Lower) General Time Seen by Provider: 14:10 Date Seen: 12/13/24 Chief Complaint: Extremity Pain/Injury, Lower Stated Complaint: right foot injury Time Seen by Provider: 12/13/24 12:56 Source: patient and RN notes reviewed Mode of arrival: ambulatory Limitations: no limitations History of Present Illness HPI Narrative: This 19-year-old college soon from [place] is coming in with right 2nd toe and foot pain below this toe. Was going down stairs last night when he tripped, he thinks that 2nd toe literally hit the banister. This happened about 10:30 p.m. last night. The toe has some bruising, there is bruising and swelling in the foot below this 2nd toe. He tried Advil, has been trying some ice and elevation. He did not injure anything else. MD complaint: foot injury Related Data Home Medications ?Medication ?Instructions ?Recorded ?Confirmed alcohol swabs (Easy Touch Alcohol 1 pad topical 3XD 05/28/23 11/26/23 Prep Pads) testosterone enanthate 200 mg/mL mg IM 05/28/23 11/26/23 intramuscular oil Previous Rx's ?Medication ?Instructions ?Recorded syringe with needle 1 mL 25 gauge #50 ea 11/26/23 x 5/8 (BD Tuberculin Syringe) testosterone enanthate 200 mg/mL 50 mg (0.25 mL) subcut QWEEK #5 mL 06/23/24 intramuscular oil Allergies Allergy/AdvReac Type Severity Reaction Status Date / Time Cotton seed oil AdvReac Intermediate rash and Uncoded 11/26/23 18:22 swelling Review of Systems Narrative: As per HPI. PFSH PFSH Surgical History [place] teeth extracted ?K08.409 - Partial loss of teeth, unspecified cause, unspecified class (ICD-10) H/O bilateral mastectomy ?Z90.13 - Acquired absence of bilateral breasts and nipples (ICD-10) S/P laparoscopic hysterectomy ?Z90.710 - Acquired absence of both cervix and uterus (ICD-10) Family History Paternal Grandfather Myocardial infarction Maternal Grandmother Stroke Maternal Grandfather Stroke High blood pressure Mother High blood pressure Anxiety Brother Anxiety Depression ADHD (attention deficit hyperactivity disorder) Alcohol dependence Drug dependence Family/Other Depression Social History Narrative: [employer] student. From [facility]. Physical activity type details: Water Polo Leisure activities: clubs Do you think of yourself as: bisexual Gender Identity: trans [id number] Exam Const: Vital Signs, click to edit/add: Vital Signs - 24 hr 12/13/24 13:02 Temperature 97.4 F L Pulse Rate [Pulse Oximeter] 95 Respiratory Rate 16 Blood Pressure [Ri ght Upper Arm] 131/85 Pulse Oximetry 97 Oxygen Delivery Me thod Room Air This 19-year-old male is alert, interactive, no apparent distress. He is applying ice to this foot. Ice pack removed and there is ecchymosis seen within the 2nd toe, this toe itself is not tender on palpation, note no significant crepitus or any step-off. Neurovascular is intact. Along the base of this toe along the 2nd metatarsophalangeal joint and into the distal metatarsal (2nd) there is swelling, ecchymosis and tenderness on bony palpation. There are no open wounds noted. Documenting provider has reviewed patient's vital signs: yes Course Course ED Course: Reviewed with patient we need an x-ray of this foot to rule out fracture. He is in agreement. He will continue to ice while we await the imaging. Reevaluation(s) Time of Reevaluation #1: 14:51 Reevaluation #1: Have reviewed with patient there is no fracture on his imaging. He is having pain with walking, will try a postop shoe for comfort. He likely just has a contusion from jamming type injury of the toe, hopefully this will improve over the next week or so, have discussed follow up with Orthopedics if not improving. Vital Signs Vital signs: Initial Vital Signs Temperature 97.4 F L 12/13/24 13:02 Temperature Source Temporal Artery Scan 12/13/24 13:02 Pulse Rate 95 12/13/24 13:02 Respiratory Rate 16 12/13/24 13:02 Blood Pressure 131/85 12/13/24 13:02 Blood Pressure Mean 100 12/13/24 13:02 Blood Pressure Position Sitting 12/13/24 13:02 Pulse Oximetry 97 12/13/24 13:02 Oxygen Delivery Method Room Air 12/13/24 13:02 Vital Signs Temperature 97.4 F L 12/13/24 13:02 Pulse Rate 95 12/13/24 13:02 Respiratory Rate 16 12/13/24 13:02 Blood Pressure 131/85 12/13/24 13:02 Pulse Oximetry 97 12/13/24 13:02 Oxygen Delivery Method Room Air 12/13/24 13:02 Temperature 97.4 F L 12/13/24 13:02 Pulse Rate 95 12/13/24 13:02 Respiratory Rate 16 12/13/24 13:02 Blood Pressure 131/85 12/13/24 13:02 Pulse Oximetry 97 12/13/24 13:02 Oxygen Delivery Method Room Air 12/13/24 13:02 MDM - Extremity Injury (Lower) Imaging Data XR right foot: Attestation: I have reviewed the pertinent imaging results. My impression: I did not appreciate any fracture on my preliminary review of this foot imaging. Radiologist's impression: [facility] Patient ID:?[id number] Site Patient ID:?[id number]. Site :?2005 Study:?XRay-Extremity Right FOOT 3V-12/13/2024 2:24:15 PM Ordering Physician:Gwyn Adames Final Report: INDICATION: Injury right 2nd toe with possible metatarsal. Technique : Right foot three views. FINDINGS: There is a small accessory ossicle adjacent to the cuboid. No other bone or joint abnormality is identified. There is no convincing fracture or dislocation. Dictated by Xander Torres MD @ 12/13/2024 2:43:15 PM (Electronic Signature) Discharge Plan Discharge Clinical Impression: Contusion of foot Qualifiers: Encounter type: initial encounter Laterality: right Qualified Code(s): S90.31XA - Contusion of right foot, initial encounter Patient Disposition: Home, Self-Care Condition: Stable Instructions: Foot Contusion (ED) Additional Instructions: Use postop shoe as needed for pain-free ambulation. Continue to ice and elevate over the next 3-5 days to help decrease pain and swelling. Can use Tylenol 1000 mg 3 times a day baseline for pain. Supplement with ibuprofen per bottle directions as needed for extra pain management. If you are not improving over the next week, feel that you are having increasing pain or worsening symptoms, do recommend follow up with Orthopedics and reimaging. Phone number to schedule with Orthopedics in [facility] is [phone]. Activity Level: Activity as Tolerated Prescriptions: No Action testosterone enanthate 200 mg/mL oil IM alcohol swabs [Easy Touch Alcohol Prep Pads] Pads, Medicated 1 pad topical 3XD (DME) BD Tuberculin Syringe 1 mL 25 gauge x 5/8 syringe See Rx Instructions .ROUTE .MEDSUPPLY Qty: 50 0RF Rx Instructions: As directed testosterone enanthate 200 mg/mL oil 50 mg subcut QWEEK Qty: 5 5RF Rx Instructions: as a single dose Follow Up/Referrals: Provider,Not a Local [Primary Care Provider] - Stand Alone Forms: MyHealth Info Instructions
--- NOTE | 2024-12-13 14:12 | CRLHL7_ITS ---
For Patients: As a result of the Century Cures Act, medical imaging exams and procedure reports are released immediately into your electronic medical record. You may view this report before your referring provider. If you have questions, please contact your health care provider. INDICATION: Injury right 2nd toe with possible metatarsal. Technique : Right foot three views. FINDINGS: There is a small accessory ossicle adjacent to the cuboid. No other bone or joint abnormality is identified. There is no convincing fracture or dislocation. Dictated by Xander Torres MD @ 12/13/2024 2:43:15 PM (Electronically Signed)
--- OUTSIDE RECORDS SUMMARY | 2024-12-13 14:39 | XMS_ITS | Clinical Summary ---
Author Organization [facility], [facility], [facility], and Affiliates Address [address] [place] [address] Care Team Providers Care Corporate Strategy Intern Name Role Phone Clay Agarwal MD Primary Care Provider Joan Kitchen NP Unavailable [phone] Francesca Nagel MD Unavailable [phone] Allergies Active Allergy Reactions Criticality Noted Date [...] female, he/him, who was first evaluated at [facility] for gender dysphoria 07/21/2019. Ayaz started [...] are no contraindications for hysterectomy. Discharged from [facility]. Assessment & Plan (04/25/2022 4:01 PM PDT): Ayaz Armenta is a male designated female, he/him, who was first evaluated at [facility] for gender dysphoria 07/21/2019. Ayaz started [...] adult care provider 08/14/2021 03/06/2023 Overview (09/04/2022): [facility] ([facility]) Health Care Transition Readiness 1. [x] Have you shared the HCT policy (.CAGCHCTPolicy) with the patient? 2. [x] Is the patient on a stable hormone regimen? 3. [] Has patient signed their [facility] consent forms (if >=18 years)? 4. [] [...] transition to adult gender care services: Yes. [facility] Gender Health. Eosinophilia 05/23/2021 09/04/2022 Assessment [...] Description 11/18/2024 1:15 PM PDT Office Visit [facility] Transgender Care Clinic [address] [place] [phone] Francesca Nagel MD Gender dysphoria (Primary Dx) 10/08/2024 Telephone [facility] Trans[facility] Clinic [address] [place] [phone] Francesca Nagel MD Medication Prior Authorization (Testopel [...] Upcoming Encounters Date Type Department Care Team ([facility] st Contact Info) Description 02/10/2025 3:00 PM PDT Office Visit [facility] Transgender Care Clinic [address] [facility] [address] [place] [address] Francesca Nagel MD [address] [facility], [address] [place] [address] Health Maintenance Due Date Last Done Comments [...] 1 09/19/2021, 07/28/2021, Additional history exists Insurance [facility] Care Teams Corporate Strategy Intern Relationship Specialty Start Date End Date Clay Agarwal MD [address] [place] [address] Rd [address] [place] [address] PCP - General Pediatrics 07/21/19 Joan Kitchen NP [address] [place] [address], 6th [place] [phone] Nurse Practitioner Pediatric Endocrinology 04/25/22 Francesca Nagel MD [address] [place] [address], [address] [place] [address] Family Medicine 01/21/23
--- OUTSIDE RECORDS SUMMARY | 2024-12-13 14:39 | XMS_ITS | Encounter Summary ---
Author Organization [facility] Health, [facility], [facility], and Affiliates Address [address] [place] [address] Care Team Providers Care Customer Support Associate Name Role Phone Clay Agarwal MD Primary Care Provider Joan Kitchen NP Unavailable [phone] Francesca Nagel MD Unavailable [phone] Reason for Visit * Reason Onset Date Comments Gender Checklist 09/07/2019 Encounter Details Date Type Department Care Team (Late st Contact Info) Description 09/07/2019 Telephone [facility] Pediatric Endocrine [address] [place] [phone] Berta Arroyo, DULCE Gender Checklist Social History [...] - 09/07/2019 1:23 PM PST Copied from [facility] #[id number]. Topic: PEDS - Provider Only >> Sep 07, 2019 8:49 AM Arnulfo Paul wrote: APPOINTMENT TEMPLATE PATIENT NAME: Elizabeth Armenta DATE OF : 2005 MOM's Cell PHONE NUMBER:[phone] LEAVING A MESSAGE OK?: No REASON FOR APPOINTMENT: Start Testosterone INSURANCE INFORMATION: PAYOR: [employer] PLAN: Us/managed Choice [employer] MESSAGE / PROBLEM: Madhuri Armenta (Mother) would like to schedule above- please assist. MESSAGE GENERATED BY [facility] CRM NUMBER [id number] CREATED BY: ARNULFO PAUL, 09/07/2019, 8:49 AM documented in this encounter Plan of Treatment Upcoming Encounters Date Type Department Care Team (Late st Contact Info) Description 02/10/2025 3:00 PM PDT Office Visit [facility] Transgender Care Clinic [address] [place] [phone] Francesca Nagel MD [address] [place] [address] documented as of this encounter Visit Diagnoses Not on filedocumented in this encounter Care Teams Customer Support Associate Relationship Specialty Start Date End Date Clay Agarwal MD [address] [place] [address] PCP - General Pediatrics 07/21/19 Joan Kitchen NP [address] [place] [address], 6th [place] [phone] Nurse Practitioner Pediatric Endocrinology 04/25/22 Francesca Nagel MD [address] [place] [address] [address] [place] [address] Family Medicine 01/21/23 documented as of this encounter
--- OUTSIDE RECORDS SUMMARY | 2024-12-13 14:39 | XMS_ITS | Encounter Summary ---
Author Organization [facility], [facility], [facility], and Affiliates Address [address] [place] [address] Care Team Providers Care Food Photographer Name Role Phone Clay Agarwal MD Primary Care Provider Joan Kitchen NP Unavailable [phone] Francesca Nagel MD Unavailable [phone]- [phone] Reason for Visit * Reason Comments Procedure Testopel Encounter Details Date Type Department Care Team ([facility] Contact Info) Description 11/18/2024 1:15 PM PDT Office Visit [facility] Trans[facility] Care Clinic [address] [place] [phone] Francesca Nagel MD [address] [place] [address], [address] [place] [address] Gender dysphoria (Primary Dx) Social History Tobacco [...] PDT Have your labs done at any [facility] lab location in 2 weeks. You can find a [facility] lab location and schedule your lab test appointment at this website: [email or web address] Tests can be done by appointment or as a walk-in If you are not having your blood test performed in the [facility], It is advised that you bring a [...] you. Scheduling is now done through the Health 123 portal. You may also call [phone] however please note that requests for scheduling via phone may experience significant delays. PATIENT POLICIES AND EXPECTATIONS [facility] GENDER AFFIRMING HEALTH PROGRAM Reading and understanding these policies and expectations are a requirement for treatment in this clinic. More information about our program is available at [email or web address] TIMING OF LABS AND VISITS In order to properly monitor your health and treatment, your provider will periodically order lab tests to be done, and request follow up visits. The timing and details for these lab tests and visitswill be listed in your after visit summary, available in Health 123, or printed for you on paper at [...] will send you a reminder message by Health 123 (or by phone, if you are not signed up for Health 123) when lab tests are due. If labs [...] should contact our office or self-schedule via Health 123 at least 3 months in advance to [...] visits requires that you have an active [facility] Health 123 account, that you regularly check for messages and notices, and that you have set up Health 123 to send you notifications viae-mail or on your device when messages and notices received. If you do not have an active Health 123 account, or if you are sent messages via Health 123 that go unread, you will no longer be able to schedule telemedicine visits, and will be required to schedule only in-person visits. Telemedicine visits have specific requirements provided below. If you are unable to meet these requirements, you will asked to schedule only in-person visits. 1) You must be a permanent resident of, or located in, the [facility] (or other states where your provider might [...] end of the visit, or through the Health 123 portal. The AVSwill contain all of your [...] staff. To view your After-Visit Summary in Health 123: 1) Log in to Health 123 2) Go to the Visits tab 3) Under the Visits tab, choose Appointments and Past Visits Select the After Visit Summary under the specific visit CLARIFICATIONS AND TREATMENTS WE DO NOT OFFER AT THIS CLINIC The below treatments and methods are not evidence based nor aligned with guidelines, and not offered at the [facility] Gender Affirming Health Program 1) Dosing of [...] MD - 11/18/2024 1:15 PM PDT Ayaz Armenta is an 19 y.o. person here for: [...] of life. Pt already on HRT, discussed termite control service representative considerations, risks, alternatives, and unknowns. Pt has [...] 3:00 PM PDT Office Visit [facility] Trans[facility] Care Clinic [address] [place] [phone] Francesca Nagel MD [address] [place] [address] [address] [place], [place] [phone] Scheduled Orders Name Type Priority Associated Diagnoses [...] children documented in this encounter Care Teams Food Photographer Relationship Specialty Start Date End Date Clay Agarwal MD [facility] [address] [place] [address] PCP - General Pediatrics 07/21/19 Joan Kitchen NP [facility], 6th [place] [phone] Nurse Practitioner Pediatric Endocrinology 04/25/22 Francesca Nagel MD [address] [place] [address], [address] [place], [place] [phone] Family Medicine 01/21/23 documented as of this encounter
--- OUTSIDE RECORDS SUMMARY | 2024-12-13 14:39 | XMS_ITS | Encounter Summary ---
Author Organization [facility], [facility], [facility], and Affiliates Address [address] [facility] [place] [address] Care Team Providers Care Pediatric Geneticist Name Role Phone Provider, Not Confirmed Primary Care Provider Un available Clay Agarwal MD Primary Care Provider Joan Kitchen NP Unavailable [phone] Francesca Nagel MD Unavailable [phone] Encounter Details Date Type Department Care Team (Late st Contact Info) Description 02/19/2019 Care Coordination [facility] [address] [facility] [place] [phone] Provider, Not Confirmed Social History Tobacco Use [...] Description 02/10/2025 3:00 PM PDT Office Visit [facility] Transgender Care Clinic [address] [place] [phone] Francesca Nagel MD [address] [place] [address] St, [address] [place] [address] documented as of this encounter Visit Diagnoses Not on filedocumented in this encounter Care Teams Pediatric Geneticist Relationship Specialty Start Date End Date Provider, Not Confirmed PCP - General 02/19/19 07/20/19 Clay Agarwal MD [address] [place] [address] PCP - General Pediatrics 07/21/19 Joan Kitchen NP [address] [place] [address], 6th [place] [address] Nurse Practitioner Pediatric Endocrinology 04/25/22 Francesca Nagel MD [address] [facility], [address] [place] [address] Family Medicine 01/21/23 documented as of this encounter
--- OUTSIDE RECORDS SUMMARY | 2024-12-13 14:39 | XMS_ITS | Encounter Summary ---
Author Organization [facility], [facility], [facility], and Affiliates Address [address] [place] [address] Care Team Providers Care Senior Property Accountant Name Role Phone Clay Agarwal MD Primary Care Provider Joan Kitchen NP Unavailable Francesca Nagel MD Unavailable [phone] Reason for Visit * Reason Onset Date Comments Medication Prior Authorization 04/05/2020 t estosterone enanthate Encounter Details Date Type Department Care Team (Late Contact Info) Description 04/05/2020 Telephone [facility] Pediatric Endocrine [address] [place] [address] 4 [place] [phone] Radha Miller Medication Prior Authorization [...] 02/10/2025 3:00 PM PDT Office Visit [facility] Trans[facility] Care Clinic [address] [place] [phone] Francesca Nagel MD [facility] [phone] documented as of this encounter Visit Diagnoses Not on filedocumented in this encounter Care Teams Senior Property Accountant Relationship Specialty Start Date End Date Clay Agarwal MD [address] [place] [address] Rd [address] [place] [address] PCP - General Pediatrics 07/21/19 Joan Kitchen NP [address] [place] [address], 6th [place] [phone] Nurse Practitioner Pediatric Endocrinology 04/25/22 Francesca Nagel MD [address] [place] [address], [address] [place] [address] Family Medicine 01/21/23 documented as of this encounter
--- OUTSIDE RECORDS SUMMARY | 2024-12-13 14:39 | XMS_ITS | Encounter Summary ---
Author Organization [facility], [facility], [facility], and Affiliates Address [address] [place] [address] Care Team Providers Care Senior Qualitative Researcher Name Role Phone Clay Agarwal MD Primary Care Provider Joan Kitchen NP Unavailable [phone] Francesca Nagel MD Unavailable [phone] Encounter Details Date Type Department Care Team (Late Contact Info) Description 03/23/2021 Telephone [facility] Pediatric Endocrine [address] [place] [address] 4 [place] [phone] Gabriela Roberts RN Social History [...] [facility] [address] [place] [phone] Francesca Nagel MD [address] [place] [address] St, [address] [place] [address] documented as of this encounter Visit Diagnoses Not on filedocumented in this encounter Care Teams Senior Qualitative Researcher Relationship Specialty Start Date End Date Clay Agarwal MD [address] [place] [address] PCP - General Pediatrics 07/21/19 Joan Kitchen NP [address] [place] [address], 6th [place] [address] Nurse Practitioner Pediatric Endocrinology 04/25/22 Francesca Nagel MD [facility], [address] [place] [address] Family Medicine 01/21/23 documented as of this encounter
--- OUTSIDE RECORDS SUMMARY | 2024-12-13 14:39 | XMS_ITS | Encounter Summary ---
Author Organization [facility], [facility], [facility], and Affiliates Address [address] [place] [address] Care Team Providers Care Dairy Bar Manager Name Role Phone Clay Agarwal MD Primary Care Provider Joan Kitchen WEB MANAGER Unavailable [phone] Francesca Nagel MD Unavailable [phone] Encounter Details Date Type Department Care Team (Late st Contact Info) Description 08/13/2022 Telephone [facility] [address] [place] [address] Joan Kitchen, WEB MANAGER [address], [address]th [place] [address] Social History Tobacco Use Types [...] September. Pt was seen in Jul with [facility] Transgender clinic. documented in this encounter Plan of Treatment Upcoming Encounters Date Type Department Care Team (Late st Contact Info) Description 02/10/2025 3:00 PM PDT Office Visit [facility] Transgender Care Clinic [address] [place] [phone] Francesca Nagel MD [address] [place] [address] 250 [place], [place] [phone] documented as of this encounter Visit Diagnoses Not on filedocumented in this encounter Care Teams Dairy Bar Manager Relationship Specialty Start Date End Date Clay Agarwal MD [facility] [address] [place] [address] PCP - General Pediatrics 07/21/19 Joan Kitchen NP [address] [place] [address], 6th [place] [address] Nurse Practitioner Pediatric Endocrinology 04/25/22 Francesca Nagel MD [address] [place] [address], [facility] [address] [place], [place] [phone] Family Medicine 01/21/23 documented as of this encounter
--- OUTSIDE RECORDS SUMMARY | 2024-12-13 14:39 | XMS_ITS | Clinical Summary ---
Author Organization [facility] Address [address] [facility], [place] [address] [place] [address] Care Team Providers Care Sanitation Superintendent Name Role Phone Clay Agarwal MD Primary Care Provider Source Comments These records are disclosed for treatment purposes as permitted by state and federal privacy law. Any further disclosure may only be done as permitted by law or with the patient's written authorization.[facility] Allergies Active Allergy Reactions [...] age to complete this topic Care Teams Sanitation Superintendent Relationship Specialty Start Date End Date Clay Agarwal MD [facility] [address] [place] [address] PCP - General Unknown 10/31/22
--- OUTSIDE RECORDS SUMMARY | 2024-12-13 14:39 | XMS_ITS | Encounter Summary ---
Author Organization [facility], [facility], [facility], and Affiliates Address [address] [place] [address] Care Team Providers Care Ceiling Insulation Blower Name Role Phone Clay Agarwal MD Primary Care Provider Joan Kitchen NP Unavailable [phone] Francesca Nagel MD Unavailable [phone] Reason for Visit * Reason Onset Date Comments Medication Prior Authorization 11/09/2021 t estosterone enanthate Encounter Details Date Type Department Care Team (Late Contact Info) Description 11/09/2021 Telephone [facility] Pediatric Endocrine [facility] [place] [phone] Radha Miller Medication Prior Authorization (testosterone [...] Encounters Date Type Department Care Team ([facility] Contact Info) Description 02/10/2025 3:00 PM PDT Office Visit [facility] Transgender Care Clinic [address] [place] [phone] Francesca Nagel MD [address] [place] [phone] documented as of this encounter Visit Diagnoses Not on filedocumented in this encounter Care Teams Ceiling Insulation Blower Relationship Specialty Start Date End Date Clay Agarwal MD [address] [place] [address] Rd [address] 1 [place] [address] PCP - General Pediatrics 07/21/19 Joan Kitchen NP [address] [place] [address], 6th [place] [phone] Nurse Practitioner Pediatric Endocrinology 04/25/22 Francesca Nagel MD [address] [place] [address] Family Medicine 01/21/23 documented as of this encounter
--- OUTSIDE RECORDS SUMMARY | 2024-12-13 14:39 | XMS_ITS | Encounter Summary ---
Author Organization [facility] Health, [facility], [facility], and Affiliates Address [address] [place] [address] Care Team Providers Care Animal Groomer Name Role Phone Clay Agarwal MD Primary Care Provider Joan Kitchen NP Unavailable Francesca Nagel MD Unavailable [phone] Reason for Visit * Reason Onset Date Comments Name Change 11/30/2019 Encounter Details Date Type Department Care Team (Late st Contact Info) Description 11/30/2019 Telephone [facility] Pediatric Endocrine [address] [place] [phone] Berta Arroyo, DULCE Name Change Social History [...] - 11/30/2019 12:17 PM PDT Copied from [facility] #[id number]. Topic: PEDS - Test Results >> Nov 30, 2019 8:53 AM Danyell Rivera wrote: TEST TEMPLATE PATIENT NAME: Ayaz Armenta DATE OF : 2005 HOME PHONE NUMBER: NONE ALTERNATE PHONE NUMBER: [phone] LEAVING A MESSAGE OK?: YES TYPE OF TEST: new lab order (TESTOSTERONE)with the correct name Ayaz SEND TEST ORDER TO: [facility] [id number], fax# [phone] INSURANCE INFORMATION: PAYOR: [employer] PLAN: Us/managed Choice [employer] MESSAGE / PROBLEM: Madhuri Armenta (Mother)called and requested above, the name legally has been changed with insurance and mom wants test to be paid for, please assist. MESSAGE GENERATED BY [facility] CRM NUMBER [id number] CREATED BY: DANYELL RIVERA, 11/30/2019, 8:53 AM documented in this encounter Plan of Treatment Upcoming Encounters Date Type Department Care Team (Late st Contact Info) Description 02/10/2025 3:00 PM PDT Office Visit [facility] Transgender Care Clinic [address] [place] [phone] Francesca Nagel MD [address] [place] [address], [address] [place] [address] documented as of this encounter Visit Diagnoses Not on filedocumented in this encounter Care Teams Animal Groomer Relationship Specialty Start Date End Date Clay Agarwal MD [address] [place] [address] PCP - General Pediatrics 07/21/19 Joan Kitchen NP [address] [place] [address], 6th [place] [phone] Nurse Practitioner Pediatric Endocrinology 04/25/22 Francesca Nagel MD [address] [facility], [address] [place] [address] Family Medicine 01/21/23 documented as of this encounter
--- OUTSIDE RECORDS SUMMARY | 2024-12-13 14:39 | XMS_ITS | Referral Summary ---
Author Organization [facility], [facility], [facility], and Affiliates Address [address] [place] [address] Care Team Providers Care Brick Or Block Maker Name Role Phone Clay Agarwal MD Primary Care Provider Joan Kitchen NP Unavailable Francesca Nagel MD Unavailable [phone] Encounters Date Type Department Care Team Description 11/18/2024 1:15 PM PDT Office Visit [facility] Transgender Care Clinic [address] [place] [phone] Francesca Nagel MD Gender dysphoria (Primary Dx) 10/08/[address] [facility] Transgender Care Clinic [address] [place] [phone] Francesca Nagel MD Medication Prior Authorization [...] 5/8 syringeIndicati ons:Gender dysphoria 1 each by [facility].(Non-Drug; Combo Route) route every [...] female, he/him, who was first evaluated at [facility] for gender dysphoria 07/21/2019. Ayaz started [...] are no contraindications for hysterectomy. Discharged from [facility]. Assessment & Plan (04/25/2022 4:01 PM PDT): Ayaz Armenta is a male designated female, he/him, who was first evaluated at [facility] for gender dysphoria 07/21/2019. Ayaz started [...] adult care provider 08/14/2021 03/06/2023 Overview (09/04/2022): [facility] ([facility]) Health Care Transition Readiness 1. [x] Have you shared the HCT policy (.CAGCHCTPolicy) with the patient? 2. [x] Is the patient on a stable hormone regimen? 3. [] Has patient signed their [facility] consent forms (if >=18 years)? 4. [...] transition to adult gender care services: Yes. [facility] Gender Health. Eosinophilia 05/23/2021 09/04/2022 [...] Upcoming Encounters Date Type Department Care Team ([facility] st Contact Info) Description 02/10/2025 3:00 PM PDT Office Visit [facility] Transgender Care Clinic [address] [facility] [address] [place] [phone] Francesca Nagel MD [address] [facility], [address] [place] [address] Insurance ANTHEM Care Teams Brick Or Block Maker Relationship Specialty Start Date End Date Clay Agarwal MD [facility] [address] [place] [address] PCP - General Pediatrics 07/21/19 Joan Kitchen NP [facility], 6th [place] [address] Nurse Practitioner Pediatric Endocrinology 04/25/22 Francesca Nagel MD [facility], [place] [phone] Family Medicine 01/21/23
== END 2024-12-13 15:14 | disposition home or self-care (01) ==
PROVIDERS: Emergency Provider Family Medicine
DX: S90.31XA Contusion of right foot, initial encounter (principal); W10.9XXA Fall (on) (from) unspecified stairs and steps, initial encounter
CPT/HCPCS: 73630; 99283